=== PATIENT | male | born 2000 | race Caucasian/White ===

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

== ENCOUNTER 2022-06-23 19:59 | Emergency (ER) | payer MEDICAID, OTHER ==
[~2022-06-23] VITALS: Ht 188 cm; Wt 156.8 kg
[2022-06-23 22:17] VITALS: BP 142/78
== END 2022-06-23 22:57 | disposition home or self-care (01) ==
LOC: ER 19:59
DX: M54.2 Cervicalgia (principal); M25.512 Pain in left shoulder; J45.909 Unspecified asthma, uncomplicated; V89.2XXA Person injured in unspecified motor-vehicle accident, traffic, initial encounter; Y93.89 Activity, other specified; Y92.89 Other specified places as the place of occurrence of the external cause; Y99.8 Other external cause status
CPT/HCPCS: 72040; 73030

== ENCOUNTER 2022-06-25 12:33 | Emergency (ER) | payer MEDICAID, OTHER ==
[~2022-06-25] VITALS: Ht 193 cm; Wt 162.9 kg
[2022-06-25 14:23] VITALS: BP 138/68
[2022-06-25] MEDS ORDERED: IBUP800T27 PO (15:36)
[2022-06-25] MEDS ORDERED: METH750T22 PO (15:36)
== END 2022-06-25 15:47 | disposition home or self-care (01) ==
LOC: ER 12:33
DX: S43.402D Unspecified sprain of left shoulder joint, subsequent encounter (principal); J45.909 Unspecified asthma, uncomplicated; V89.2XXD Person injured in unspecified motor-vehicle accident, traffic, subsequent encounter
CPT/HCPCS: 73030